=== PATIENT | female | born 1940 | race Caucasian/White ===

== ENCOUNTER 2020-05-29 11:32 | Emergency (ER) | payer MEDICARE ==
[~2020-05-29] VITALS: Ht 175.3 cm; Wt 68.0 kg
[~2020-05-29 11:32] MED LIST: ASPIR 8181 MG PO; CALCIUM600 MG PO; CLOBETASOL PROP15 GM; ENTOCORT EC3 MG PO; EVISTA60 MG PO; LOSARTAN POTAS100 MG PO; PRAVASTATIN SOD10 MG PO; RANITIDINE HCL150 M1 PO; VITAMIN D1000 UNIT PO
[2020-05-29 14:03] VITALS: BP 151/86
== END 2020-05-29 14:04 | disposition home or self-care (01) ==
LOC: ER 12:05
DX: S06.0X0A Concussion without loss of consciousness, initial encounter (principal); W06.XXXA Fall from bed, initial encounter; Y93.84 Activity, sleeping; Y92.003 Bedroom of unspecified non-institutional (private) residence as the place of occurrence of the external cause; K21.9 Gastro-esophageal reflux disease without esophagitis; E78.5 Hyperlipidemia, unspecified
CPT/HCPCS: 70450; 70486; 72125; 99283

== ENCOUNTER → 2021-07-10 | Outpatient (RCR) | payer MEDICARE | LOC: PT 14:33 | PROVIDERS: ATTEND Physician Assistant | DX: M17.0 Bilateral primary osteoarthritis of knee (principal) ==

== ENCOUNTER 2021-08-07 14:00 | Outpatient (RCR) | payer MEDICARE | END 2021-08-10 | LOC: PT 14:00 | PROVIDERS: ATTEND Physician Assistant | DX: M17.0 Bilateral primary osteoarthritis of knee (principal) ==